=== PATIENT | female | born 1925 | race Caucasian/White ===

== ENCOUNTER 2016-06-16 13:23 | Emergency (ER) | payer OTHER, MEDICARE ==
[~2016-06-16] VITALS: Ht 170.2 cm; Wt 63.5 kg
[~2016-06-16 13:23] MED LIST: BISACODYL SUPP10 MG RECTAL; CALCIUM; CALCIUM MAGNES1 EAC2 PO; CEFTIN 250 MG250 MG PO; COLACE100 MG PO; COUMADIN 2.5MG2.5 M1 PO; COUMADIN 5 MG TA5 M1 PO; DILT-CD240 MG PO; FOSAMAX 70 MG T70 MG PO; LISINOPRIL20 MG PO; MAG-AL PLUS SUS30 ML PO; MULTIVITAMIN W1 EAC5 PO; PERCOCET PO; SENNA LAXATIVE1 EACH PO; SIMVASTATIN10 MG PO; SODIUM CHLORIDE1 G2 PO; TRAMADOL 50 MG50 MG PO; TUSSIONEX PENN473 ML PO; TYLENOL325 MG PO; VITAMIN B-1250 MC1 PO; VITAMIN B-1250 MC2 PO; VITAMIN D31000 UNI2 PO; ZPAK PO
[2016-06-16 14:05] LABS: CALCIUM 8.7 mg/dL (8.5-10.1); CREATININE 0.9 mg/dL (0.6-1.3)
[2016-06-16 14:07] LABS: HEMATOCRIT 43.2 % (37.0-47.0); MANUAL DIFF YES; MCH 28.9 pg (26.0-34.0); MCHC 32.4 % (28.0-37.0); MCV 89.2 fL (80.0-100.0); PLATELET COUNT 156 thou/uL (150-400); RBC 4.84 mil/uL (4.20-5.00); RDW 13.9 % (10.5-14.5); WBC 6.9 thou/uL (4.0-11.0)
[2016-06-16 14:15] LABS: INR 3.2; PROTIME 32.8 Seconds (9.3-11.4)
[2016-06-16 14:36] LABS: ABSOLUTE NEUTROPHILS 5.1 thou/uL (1.4-8.2); TOTAL CELL COUNT 100
[2016-06-16 14:37] LABS: OVALOCYTES FEW
[2016-06-16 14:40] LABS: ANISOCYTOSIS 1+
[2016-06-16 14:41] VITALS: BP 150/79
== END 2016-06-16 14:43 | disposition home or self-care (01) ==
LOC: ER 13:23
PROVIDERS: Emergency Medicine
DX: J31.0 Chronic rhinitis (principal); R79.1 Abnormal coagulation profile; I48.91 Unspecified atrial fibrillation; F10.99 Alcohol use, unspecified with unspecified alcohol-induced disorder; Z88.8 Allergy status to other drugs, medicaments and biological substances; Z90.710 Acquired absence of both cervix and uterus; Z90.11 Acquired absence of right breast and nipple